=== PATIENT | male | born 1975 | race Caucasian/White ===

== ENCOUNTER 2018-10-05 20:01 | Emergency (ER) | payer MEDICAID ==
[~2018-10-05] VITALS: Ht 188 cm; Wt 109.1 kg
[2018-10-05] MEDS ORDERED: LIDOCAINE/PF 1% 2 ML VIAL IM ONE (21:00)
[2018-10-05] MEDS ORDERED: CefTRIAXone SODIUM 1 GM/VIAL IM ONE (21:00)
[2018-10-05] MEDS ORDERED: IBUPROFEN 800 MG TABLET PO ONE (21:00)
[2018-10-05 21:40] VITALS: BP 151/79
== END 2018-10-05 21:49 | disposition home or self-care (01) ==
LOC: EMS 20:02
DX: K02.9 Dental caries, unspecified (principal); R22.0 Localized swelling, mass and lump, head; F17.210 Nicotine dependence, cigarettes, uncomplicated
CPT/HCPCS: 96372; 99283; 99406; J0696; J3490

== ENCOUNTER 2025-01-09 12:01 | Emergency (ER) | payer MEDICAID, OTHER ==
[~2025-01-09] VITALS: Ht 188 cm; Wt 113.6 kg
[2025-01-09] MEDS: ACETAMINOPHEN 500 MG TABLET PO ONE (13:03)
[2025-01-09 13:04] VITALS: BP 143/101; PULSE 82; RESP 18; TEMP 98.3; O2SAT 98
== END 2025-01-09 14:58 ==
LOC: EMS 12:09
DX: S00.03XA Contusion of scalp, initial encounter (principal); F17.210 Nicotine dependence, cigarettes, uncomplicated; Y35.819A Legal intervention involving manhandling, unspecified person injured, initial encounter; Y93.89 Activity, other specified; Y92.89 Other specified places as the place of occurrence of the external cause; Y99.8 Other external cause status
CPT/HCPCS: 70450; 70486; 72125; 99284